=== PATIENT | female | born 1940 | race African-American/Black ===

== ENCOUNTER 2018-10-22 06:42 | Inpatient (IN) | payer OTHER ==
[2018-10-22 06:51] VITALS: BMI 24.7
[2018-10-22 08:01] LABS: BASO % 0.9 % (0-2.0); EOS % 0.1 % (0-4.5); HEMATOCRIT 35.2 % (32.4-45.2); HEMOGLOBIN 12.1 GM/dL (10.7-15.3); LYMPH % 10.6 % (8-40); MCH 28.7 pg (25.7-33.7); MCHC 34.5 g/dl (32.0-36.0); MEAN CELL VOLUME 83.3 fl (80-96); MEAN PLT VOLUME 8.2 fl (7.5-11.1); NEUT % 83.4 % (42.8-82.8); PLATELET COUNT 205 K/MM3 (134-434); RBC 4.22 M/mm3 (3.60-5.2); RDW 16.9 % (11.6-15.6)
[2018-10-22] MEDS ORDERED: ONDANSETRON 4 MG/2 ML VIAL IVPUSH ONE (08:27)
[2018-10-22] MEDS ORDERED: FAMOTIDINE 20 MG/50 ML IVPB 20 MG/50 ML MG IVPB ONE ×2 (08:27→08:40)
[2018-10-22] MEDS ORDERED: ACETAMINOPHEN 1000 MG/100 ML VIAL (NON FORMULARY) IVPB ONE (08:27)
[2018-10-22] MEDS ORDERED: ONDANSETRON 4 MG/2 ML VIAL ONE (08:39)
[2018-10-22] MEDS ORDERED: ACETAMINOPHEN INJECTION 100 ML IVPB ONE (08:39)
[2018-10-22 09:09] LABS: BLOOD UREA NITROGEN 14 mg/dL (7-18); CREATININE 0.7 mg/dL (0.55-1.3); GLUCOSE,RANDOM 129 mg/dL (74-106)
[2018-10-22 09:10] LABS: ALBUMIN 3.9 g/dl (3.4-5.0); ALK PHOS 100 U/L (45-117); ANION GAP 8 MMOL/L (8-16); BILIRUBIN,TOTAL 0.4 mg/dL (0.2-1); CALCIUM 8.3 mg/dL (8.5-10.1); CHLORIDE 100 mmol/L (98-107); CO2 26 mmol/L (21-32); LIPASE 59 U/L (73-393); POTASSIUM 3.8 mmol/L (3.5-5.1); SGOT/AST 85 U/L (15-37); SGPT/ALT 51 U/L (13-61); SODIUM 134 mmol/L (136-145); TOT PROT 7.6 g/dl (6.4-8.2)
[2018-10-22 09:15] LABS: URINE APPEARANCE CLEAR; URINE BILIRUBIN NEGATIVE (<2.0 mg/dL); URINE COLOR STRAW; URINE GLUCOSE (UA) NEGATIVE (NEGATIVE); URINE KETONE NEGATIVE (NEGATIVE); URINE LEUK ESTERASE NEGATIVE (NEGATIVE); URINE NITRITE NEGATIVE (NEGATIVE); URINE PROTEIN NEGATIVE (NEGATIVE); URINE UROBILINOGEN NEGATIVE mg/dL (0.2-1.0)
--- NOTE | 2018-10-22 09:19 | PDOC ---
Attending Attestation - HPI HPI: 10/22/18 10:29 The patient is a 77 year old female with a past medical history of HTN and afib (on eliquis) here today for evaluation of chest pain. The patient reports that her chest pain began last night at approximately 11:30 and describes the pain as a tightness, constant, and localized to the mid sternum. She reports that the pain was so great that she was not able to sleep. Patient denies headache, lightheadedness. Denies fever, chills. Denies shortness of breath. Denies nausea, vomiting, diarrhea, abdominal pain. Denies lower extremity edema. Allergies: NKDA Amusement Equipment Operator: Gael Vazquez - Physicial Exam PE: 10/22/18 10:41 Vitals: Triage vital signs reviewed General Appearance: No acute distress, well nourished, well developed Head: Atraumatic Chest Wall: Nontender Cardiac: Regular rate and rhythm, no murmurs, no rubs, no gallops Lungs: Clear to auscultation bilateral, good air movement bilaterally Extremities: Full range of motion to all extremities, no cyanosis, clubbing, or edema Skin: Warm and dry, no rashes or lesions, no rash, no petechiae Psych: Normal mood, normal affect - Medical Decision Making 10/22/18 10:31 Documentation prepared by MIKI Anderson, acting as medical front desk coordinator for Ricki Carroll MD. The patient is a 77 year old female with a past medical history of HTN and afib (on eliquis) here today for evaluation of chest pain. <Jordon Glynn - Last Filed: 10/22/18 10:41> - Resident Resident Name: Cj Tripathi - ED Attending Attestation I have performed the following: I have examined & evaluated the patient, The case was reviewed & discussed with the resident, I agree w/resident's findings & plan, Exceptions are as noted <Ricki Carroll - Last Filed: 10/22/18 13:51> Heart Score/ECG Review - History History: Highly suspicious - Electrocardiogram EKG: Non specific repolarization disturbance - Age Age: >/= 65 <Ricki Carroll - Last Filed: 10/22/18 13:51>
--- NOTE | 2018-10-22 09:35 | EKG ---
Test Reason : Blood Pressure : / mmHG Vent. Rate : 091 BPM Atrial Rate : 091 BPM P-R Int : 000 ms QRS Dur : 086 ms QT Int : 392 ms P-R-T Axes : 000 061 027 degrees QTc Int : 482 ms ATRIAL FIBRILLATION WITH PREMATURE VENTRICULAR OR ABERRANTLY CONDUCTED COMPLEXES ANTERIOR INFARCT , AGE UNDETERMINED ABNORMAL ECG WHEN COMPARED WITH ECG OF 06-DEC-2015 15:47, PREMATURE VENTRICULAR COMPLEXES Confirmed by MAREK HANKS MD ([id number]) on 10/22/2018 9:35:21 AM Referred By: Confirmed By:MAREK HANKS MD
[2018-10-22 09:46] LABS: EPI CELLS RARE /HPF (FEW)
--- NOTE | 2018-10-22 10:15 | PDOC ---
History of Present Illness - General Chief Complaint: Chest Pain Stated Complaint: CHEST PAIN Time Seen by Provider: 10/22/18 08:10 History Source: Patient Exam Limitations: No Limitations - History of Present Illness Initial Comments: 10/22/18 10:08 Patient is a 77F with history of HTN and afib (on eliquis) here today complaining of chest pain that onset last night. She states that the pain is a "discomfort" that is worse in the left lower larisa of her chest. She associates the pain with eating too much in celebration of her birthday last night. Denies fevers, chills, nausea, vomiting. Denies shortness of breath, leg swelling, cough, history of blood clots. Denies any focal weakness. Denies abdominal pain , but thinks she has some gerd. Past History - Past Medical History Allergies/Adverse Reactions: Allergies Allergy/AdvReac Type Severity Reaction Status Date / Time No Known Drug Allergies Allergy Verified 10/22/18 06:51 Home Medications: Ambulatory Orders Amlodipine Besylate 10 mg PO DAILY 12/28/15 Apixaban [Eliquis -] 5 mg PO DAILY 10/22/18 Cardiac Disorders: Yes (A FIB) COPD: No HTN: Yes - Suicide/Smoking/Psychosocial Hx Smoking History: Never smoked Hx Alcohol Use: No Drug/Substance Use Hx: No Substance Use Type: None Hx Substance Use Treatment: No Review of Systems - Review of Systems Able to Perform ROS?: Yes Comments:: 10/22/18 10:09 GENERAL/CONSTITUTIONAL: No fever or chills. No weakness. HEAD, EYES, EARS, NOSE AND THROAT: No change in vision. No sore throat. CARDIOVASCULAR: +chest pain or shortness of breath RESPIRATORY: No cough, wheezing, or hemoptysis. GASTROINTESTINAL: No nausea, vomiting, diarrhea or constipation. GENITOURINARY: No dysuria, frequency, or change in urination. MUSCULOSKELETAL: No joint or muscle swelling or pain. No neck or back pain. SKIN: No rash NEUROLOGIC: No headache, vertigo, loss of consciousness, or change in strength/ sensation. ENDOCRINE: No increased thirst. No abnormal weight change HEMATOLOGIC/LYMPHATIC: No anemia, easy bleeding, or history of blood clots. ALLERGIC/IMMUNOLOGIC: No hives or skin allergy. *Physical Exam - Vital Signs Last Vital Signs Temp Pulse Resp BP Pulse Ox 97.9 F 104 H 18 102/86 100 10/22/18 06:47 10/22/18 06:47 10/22/18 06:47 10/22/18 06:47 10/22/18 07:47 - Physical Exam Comments: 10/22/18 10:15 GENERAL: Awake, alert, and fully oriented, in no acute distress HEAD: No signs of trauma, normocephalic, atraumatic EYES: PERRLA, EOMI, sclera anicteric, conjunctiva clear ENT: Auricles normal inspection, hearing grossly normal, nares patent, oropharynx clear without exudates. Moist mucosa NECK: Normal ROM, supple, no lymphadenopathy, JVD, or masses LUNGS: No distress, speaks full sentences, clear to auscultation bilaterally HEART: Irregularly irregular, normal S1 and S2, no murmurs, rubs or gallops, peripheral pulses normal and equal bilaterally. ABDOMEN: Soft, nontender, normoactive bowel sounds. No guarding, no rebound. No masses EXTREMITIES: Normal inspection, Normal range of motion, no edema. No clubbing or cyanosis. NEUROLOGICAL: Cranial nerves II through XII grossly intact. Normal speech, normal gait, no focal sensorimotor deficits SKIN: Warm, Dry, normal turgor, no rashes or lesions noted. Moderate Sedation - Procedure Monitoring Vital Signs: Procedure Monitoring Vital Signs Temperature 97.9 F 10/22/18 06:47 Pulse Rate 104 H 10/22/18 06:47 Respiratory Rate 18 10/22/18 06:47 Blood Pressure 102/86 10/22/18 06:47 O2 Sat by Pulse Oximetry (%) 100 10/22/18 07:47 ED Treatment Course - LABORATORY CBC & Chemistry Diagram: 10/22/18 07:49 10/22/18 07:49 - ADDITIONAL ORDERS Additional order review: Laboratory Results 10/22/18 10/22/18 08:52 07:49 Sodium 134 L Potassium 3.8 Chloride 100 Carbon Dioxide 26 Anion Gap 8 BUN 14 Creatinine 0.7 Creat Clearance w eGFR > 60 Random Glucose 129 H Calcium 8.3 L Total Bilirubin 0.4 AST 85 H ALT 51 Alkaline Phosphatase 100 Troponin I 5.77 H* Total Protein 7.6 Albumin 3.9 Lipase 59 L Urine Color Straw Urine Appearance Clear Urine pH 8.0 Ur Specific [place]well 1.010 Urine Protein Negative Urine Glucose (UA) Negative Urine Ketones Negative Urine Blood 1+ H Urine Nitrite Negative Urine Bilirubin Negative Urine Urobilinogen Negative Ur Leukocyte Esterase Negative Urine WBC (Auto) <1 Urine RBC (Auto) <1 Ur Epithelial Cells Rare 10/22/18 07:49 RBC 4.22 MCV 83.3 MCHC 34.5 RDW 16.9 H MPV 8.2 Neutrophils % 83.4 H Lymphocytes % 10.6 D Monocytes % 5.0 Eosinophils % 0.1 D Basophils % 0.9 - Medications Given in the ED: ED Medications Discontinued Medications Generic Name Dose Route Start Last Admin Trade Name Freq PRN Reason Stop Dose Admin Acetaminophen 1,000 mg 10/22/18 08:27 10/22/18 08:46 Ofirmev Injection - IVPB 10/22/18 08:28 1,000 mg ONCE ONE Administration Famotidine/Sodium Chloride 20 mg in 50 mls @ 100 mls/hr 10/22/18 08:27 08:46 Pepcid 20 Mg Premixed Ivpb - IVPB 10/22/18 08:56 100 mls/hr ONCE ONE Administration Ondansetron HCl 4 mg 10/22/18 08:27 10/22/18 08:46 Zofran Injection IVPUSH 10/22/18 08:28 4 mg ONCE ONE Administration Medical Decision Making - Medical Decision Making 10/22/18 10:15 Patient is a 77F with history of HTN, afib on eliquis here today complaining of chest pain. Vitals normal and stable. DDx includes, but is not limited to: acs, arrhythmia, gerd. Got 325 aspirin and nitro in the field with no relief. Will treat with pepcid, zofran. Will do cardiac workup, likely admission. EKG shows afib with normal rate, no st elevations/depressions. Normal axis. Several PVCs. No significant st elevations. CBC normal. CMP reassuring. Trop postive to 5. EKG repeated, similar to above. Pain has not improved, will give morphine. Cardiology paged. 10/22/18 10:31 Case d/w Dr Guzman, will hold heparin at this time given patient took eliquis. Will admit. 10/22/18 14:44 Case d/w Dr Beltre, patient has new onset chest pain. Suggests nitro drip. Repeat EKG shows ST segment elevation, especially concerning in V4-V6. EKG faxed to [phone]. Dr Patt gonzalez. *DC/Admit/Observation/Transfer Diagnosis at time of Disposition: NSTEMI (non-ST elevation myocardial infarction) - Discharge Dispostion Condition at time of disposition: Stable Decision to Admit order: Yes - Referrals - Patient Instructions - Post Discharge Activity
[2018-10-22] MEDS ORDERED: morphine CARPU-JECT 4 MG/1 ML DISP.SYRIN IVPUSH ONE (11:03)
[2018-10-22] MEDS ORDERED: MORPHINE SULFATE 2 MG/ML VIAL ONE (11:18)
--- NOTE | 2018-10-22 11:30 | CON.CARD ---
Consult Consult Specialty:: Cardiology Referred by:: Emergency Medicine - Ricki Carroll MD Reason for Consultation:: Elevated troponins - History of Present Illness Chief Complaint: Chest pain History of Present Illness: The patient is a 77 year old female with a past medical history of HTN and afib (on eliquis last dose last night) here today for evaluation of non-radiating chest pressure beginning last night at approximately 11:30 pm and describes the pain as a tightness, constant, and localized to the mid sternum. She denies dyspnea, near or true syncope, palpitations, orthopnea, PND or LE edema. Last eliquis dose last night. Allergies: NKDA Registration Manager: Gael Vazquez - History Source History Provided By: Patient - Past Medical History Cardio/Vascular: Yes: AFIB (Hypertension) - Alcohol/Substance Use Hx Alcohol Use: No - Smoking History Smoking history: Never smoked Home Medications - Allergies Allergies/Adverse Reactions: Allergies Allergy/AdvReac Type Severity Reaction Status Date / Time No Known Drug Allergies Allergy Verified 10/22/18 06:51 - Home Medications Home Medications: Ambulatory Orders Amlodipine Besylate 10 mg PO DAILY 12/28/15 Apixaban [Eliquis -] 5 mg PO DAILY 10/22/18 Family Disease History - Family Disease History Family Disease History: Heart Disease: Father (age 80), Mother (age 72) Review of Systems - Review of Systems Cardiovascular: reports: Chest Pain Vital Signs: Vital Signs Temperature 97.9 F 10/22/18 06:47 Pulse Rate 104 H 10/22/18 10:27 Respiratory Rate 18 10/22/18 10:27 Blood Pressure 145/84 10/22/18 10:27 O2 Sat by Pulse Oximetry (%) 98 10/22/18 10:27 Constitutional: Yes: No Distress, Calm Neck: Yes: Supple Respiratory: Yes: Regular, CTA Bilaterally Gastrointestinal: Yes: Normal Bowel Sounds, Soft Cardiovascular: Yes: Regular Rate and Rhythm JVD: No Carotid Bruit: No Heart Sounds: Yes: S1, S2 Edema: No - Other Data Labs, Other Data: CBC, BMP 10/22/18 07:49 10/22/18 07:49 Troponin, BNP 10/22/18 07:49 Troponin I 5.77 H* Troponin, BNP 10/22/18 07:49 Troponin I 5.77 H* Afib @ [address] ischemic changes c/w previous 05/22/2018 Imaging - Results Chest X-ray: Report Reviewed (NAD) Problem List - Problems (1) Hypertensive heart disease Code(s): I11.9 - HYPERTENSIVE HEART DISEASE WITHOUT HEART FAILURE Qualifiers: Heart failure presence: without heart failure Qualified Code(s): I11.9 - Hypertensive heart disease without heart failure (2) Persistent atrial fibrillation Code(s): I48.1 - PERSISTENT ATRIAL FIBRILLATION (3) Chronic anticoagulation Code(s): Z79.01 - ASSISTED (CURRENT) USE OF ANTICOAGULANTS (4) NSTEMI (non-ST elevation myocardial infarction) Code(s): I21.4 - NON-ST ELEVATION (NSTEMI) MYOCARDIAL INFARCTION Assessment/Plan 03/17/2017: Normal LVEF 60%, mild LVH, severe DEBORAH, dilated RV, mod TR, mild pHTN , PFO noted. 1. CAD NSTEMI 2. Persistent atrial fibrillation on Eliquis 3. Hypertensive heart disease P:1. Trend trops to document peak 2. ASA, Plavix, Heparin gtt, Lopressor, Lipitor 3. Echocardiogram to assess ventricular and valve fxn 4. LHC to delineate severity of CAD 5. Thank you for consultative opportunity PS: Patient transferred to [facility] due to persistent ischemic symptoms, trops 5.77->30s. LHC showed 100% occluded mid LAD, mild diffuse RCA and LCx, moderate-severe decreased LV fxn c/w LAD infarct, elevated LVEDP 19 mmHg, no aortic stenosis. She underwent PTCA and implant Medtronic Resolute 3.0x18 mm DARWIN to mid LAD lesion with good angiographic results, TR band and Angioseal used for hemostasis. Patient stable for routine post-TN care including ASA for 1 month, Plavix for at least one year, Eliquis 5 bid indefinitely, Toprol, Lipitor, KELY-I/ARB and aldosterone antagonist. Patient to f/u with Dr. Uriel Vazquez of [facility] d/c.
[2018-10-22] MEDS ORDERED: CLOPIDOGREL BISULFATE 300 MG TABLET PO ONE (11:40)
[2018-10-22] MEDS ORDERED: HEPARIN NA (PORCINE) 5,000 UNITS/ML 1ML VIAL IVPUSH PRN ×3 (11:40)
[2018-10-22] MEDS ORDERED: METOPROLOL TARTRATE 5 MG/5 ML VIAL IVPUSH ONE (11:40)
[2018-10-22] MEDS ORDERED: metoPROLOL SUCCINATE 25 MG TAB.SR.24H (FP) PO ONE (11:40)
[2018-10-22] MEDS ORDERED: ASPIRIN 325 MG ENTERIC COATED TABLET (FP) PO ONE (11:43)
[2018-10-22] MEDS ORDERED: CLOPIDOGREL BISULFATE 300 MG TABLET ONE (11:44)
[2018-10-22] MEDS ORDERED: HEPARIN INFUSION - 25,000 UNITS/500 ML INFUS.BAG IVPB ONE (11:45)
[2018-10-22] MEDS ORDERED: HEPARIN NA (PORCINE) 5,000 UNITS/ML 1ML VIAL ONE (11:45)
[2018-10-22] MEDS ORDERED: METOPROLOL TARTRATE 5 MG/5 ML VIAL ONE (11:45)
[2018-10-22] MEDS ORDERED: HEPARIN SOD,PORK IN 0.45% NACL 25,000 UNIT/500 ML INFUS.BAG IVPB SCH (11:45)
[2018-10-22] MEDS ORDERED: NITROGLYCERIN 50MG/D5W 250ML 50 MG/250 ML ML IVPB SCH (14:45)
[2018-10-22] MEDS ORDERED: NITROGLYCERIN 25MG/D5W 250ML 25 MG/250 ML ML IVPB ONE (14:51)
[2018-10-22 16:51] VITALS: BP 140/67; PULSE 74; TEMP 98.4
--- NOTE | 2018-10-22 16:54 | DS ---
Physical Examination Vital Signs: Vital Signs Temperature 98.4 F 10/22/18 16:50 Pulse Rate 74 10/22/18 16:50 Respiratory Rate 16 10/22/18 16:50 Blood Pressure 140/67 10/22/18 16:50 O2 Sat by Pulse Oximetry (%) 99 10/22/18 15:40 Labs: CBC, BMP 10/22/18 07:49 10/22/18 07:49 Discharge Summary Reason For Visit: NSTEMI Current Active Problems Chronic anticoagulation (Acute) Hypertensive heart disease (Acute) NSTEMI (non-ST elevation myocardial infarction) (Acute) Persistent atrial fibrillation (Acute) Condition: Stable - Instructions Disposition: TRANSFER ACUTE CARE/OTHER HOSP - Home Medications Comprehensive Discharge Medication List: Ambulatory Orders Amlodipine Besylate 10 mg PO DAILY 12/28/15 Apixaban [Eliquis -] 5 mg PO DAILY 10/22/18 transfer to tertiary care for further management from ER was not able to see or examine patient ER d/w with cardio to transfer to tertiary care
--- NOTE | 2018-10-22 20:20 | EKG ---
Test Reason : Blood Pressure : / mmHG Vent. Rate : 074 BPM Atrial Rate : 288 BPM P-R Int : 000 ms QRS Dur : 092 ms QT Int : 398 ms P-R-T Axes : 000 083 022 degrees QTc Int : 441 ms ATRIAL FIBRILLATION WITH PREMATURE VENTRICULAR OR ABERRANTLY CONDUCTED COMPLEXES ANTEROLATERAL INFARCT (CITED ON OR BEFORE 22-OCT-2018)WITH ST ELEVATION AND Q WAVES ACUTE NE / STEMI ABNORMAL ECG WHEN COMPARED WITH ECG OF 22-OCT-2018 10:06, SERIAL CHANGES OF EVOLVING ANTERIOR INFARCT PRESENT SERIAL CHANGES OF EVOLVING ANTEROLATERAL INFARCT PRESENT Confirmed by DEMARIO SHARPE, MAREK ([id number]) on 10/22/2018 8:19:52 PM Referred By: Confirmed By:MAREK HANKS MD
--- NOTE | 2018-10-22 21:23 | EKG ---
Test Reason : Blood Pressure : / mmHG Vent. Rate : 096 BPM Atrial Rate : 277 BPM P-R Int : 000 ms QRS Dur : 090 ms QT Int : 378 ms P-R-T Axes : 000 036 038 degrees QTc Int : 477 ms ATRIAL FIBRILLATION WITH PREMATURE VENTRICULAR OR ABERRANTLY CONDUCTED COMPLEXES ANTEROLATERAL INFARCT (CITED ON OR BEFORE 22-OCT-2018)WITH ST ELEVATION ABNORMAL ECG WHEN COMPARED WITH ECG OF 22-OCT-2018 07:35, ST ELEVATION IN LATERAL LEADS APPEAR MORE PROMINENT Confirmed by MAREK HANKS MD ([id number]) on 10/22/2018 9:23:10 PM Referred By: Confirmed By:MAREK HANKS MD
[2018-10-22] MEDS ORDERED: METOPROLOL TARTRATE 25 MG TABLET (FP) PO SCH (22:00)
[2018-10-22] MEDS ORDERED: ATORVASTATIN CA 80 MG TABLET (FP) PO SCH (22:00)
[2018-10-23] MEDS ORDERED: ASPIRIN 81 MG CHEWABLE TABLETS PO SCH (10:00)
[2018-10-23] MEDS ORDERED: CLOPIDOGREL BISULFATE 75 MG TABLET (FP) PO SCH (10:00)
== END 2018-10-22 16:40 | disposition short-term general hospital (02) | DRG 281 ==
LOC: JER 06:42 → JERBED 10:50
PROVIDERS: ADMIT Internal Medicine; ATTEND Internal Medicine
DX: I21.4 Non-ST elevation (NSTEMI) myocardial infarction (principal); I48.1 Persistent atrial fibrillation; I11.9 Hypertensive heart disease without heart failure; I25.10 Atherosclerotic heart disease of native coronary artery without angina pectoris; I48.91 Unspecified atrial fibrillation; Z79.01 Long term (current) use of anticoagulants; I36.1 Nonrheumatic tricuspid (valve) insufficiency
CPT/HCPCS: 36415; 71045-TC-FY; 80053; 81003; 81015; 82550; 82553; 83690; 84484; 85025; 87077; 87086; 93005; 93010; 99285-25; J0131; J1644